=== PATIENT | male | born 2000 | race Caucasian/White ===

== ENCOUNTER 2018-05-08 19:10 | Emergency (ER) | payer MEDICARE, MEDICAID, SELFPAY ==
[2018-05-08 19:11] VITALS: BP 145/83; PULSE 114; RESP 20; TEMP 36.7; O2SAT 97; BMI 41.8
--- NOTE | 2018-05-08 19:50 | EKG12_ITS ---
Test Reason : CP Blood Pressure : / mmHG Vent. Rate : 110 BPM Atrial Rate : 110 BPM P-R Int : 144 ms QRS Dur : 092 ms QT Int : 336 ms P-R-T Axes : 038 -18 033 degrees QTc Int : 454 ms Sinus tachycardia Cannot rule out Anterior infarct , age undetermined Abnormal ECG Confirmed by JUAN GILBERT, GENE ([id number]), assistant film editor SHEILA TAM ([id number]) on 05/10/2018 5:11:10 PM Referred By: FRANCISCO Confirmed By:GENE MARTINEZ MD
--- NOTE | 2018-05-08 19:58 | RAD_ITS ---
STUDY: X-RAY CHEST REASON FOR EXAM: Male, 18 years old. Chest pain and shortness of breath TECHNIQUE: Single AP portable view of the chest. COMPARISON: None. FINDINGS: EKG leads overlie the chest The lungs are clear and expanded. There is no demonstrated pleural abnormality. Normal size heart. Normal mediastinum and frida. Normal visualized pulmonary arteries. Normal visualized aortic arch and descending thoracic aorta. Normal visualized thoracic spine. Normal visualized ribs, clavicles, and shoulders. There is no demonstrated abnormality of the visualized soft tissue structures of the upper abdomen. RAD/Chest 1 View (Portable) IMPRESSION: Normal x-ray examination of the chest. Electronically Signed: Jesus Polk MD at 20:08 EST , Service support ,
[2018-05-08 20:01] LABS: Absolute Lymphocyte Count 1.91 X10^3/ul (0.83-4.51); Absolute Neutrophil Count 4.9 X10^3/uL (2.0-7.7); Basophil# 0.02 X10^3/uL; Basophil% 0.3 % (0-1); Eosinophil# 0.29 X10^3/uL; Eosinophils% 3.7 % (0-5); Hematocrit 46.7 % (40-54); Lymphocyte # 1.91 X10^3/ul (4.0); Lymphocyte % 24.4 % (19-41); Mean Corp Hgb Conc 34.3 g/gl (32-36); Mean Corpuscular Hgb 28.1 pg (27.0-32.0); Mean Corpuscular Volume 82.1 fL (80-94); Mean Platelet Vol. 10.2 fl (6.2-12.0); Monocyte# 0.74 X10^3/uL; Monocyte% 9.5 % (0-10); Neutrophil # 4.86 X10^3/uL (2.7-7.7); POSITIVE COUNT NO; POSITIVE DIFFERENTIAL NO; POSITIVE MORPHOLOGY NO; Platelet Count 278 K/mm3 (150-450); RBC Distribution Width CV 13.2 % (11.6-14.6); RBC Distribution Width SD 39.9 fl (35.1-43.9); Red Blood Count 5.69 M/mm3 (4.6-6.2); White Blood Count 7.8 K/mm3 (4.4-11.0)
[2018-05-08] MEDS: Ketorolac 15 MG/ML Vial IV (20:08)
[2018-05-08 20:09] VITALS: BP 124/81; PULSE 97; RESP 15; O2SAT 99
[2018-05-08 20:14] LABS: Anion Gap 9 (5-15); BUN 13 mg/dL (7-18); BUN/Creat Ratio 14.7 RATIO (10-20); Calcium,Total 8.9 mg/dL (8.5-10.1); Chloride 105 mmol/L (98-107); Creatinine, Serum 0.88 mg/dL (0.70-1.30); EST Glomerular Filtration Rate 117 mL/min (>60); Est Glom Filt Rate - Afr Amer 142 mL/min (>60); Estimated Creatinine Clearance 129.55 ml/min; Glucose 97 mg/dL (74-106); Potassium 3.7 mmol/L (3.5-5.1); Sodium Level 139 mmol/L (136-145)
--- NOTE | 2018-05-08 20:27 | ED.RN ---
DR. FIELDS INFORMED OF PT D-DIMER.
--- NOTE | 2018-05-08 20:36 | CT_ITS ---
STUDY: CTA CHEST REASON FOR EXAM: Male, 18 years old. Substernal chest pain since this morning, hypertension, elevated d-dimer RADIATION DOSAGE (If Supplied By Facility): CTDIvol = ( 19.97 ) mGy, DLP = ( 700.79 ) mGycm TECHNIQUE: The examination was performed with the intravenous administration of 100ML ml of Isovue 370 contrast material. Post-processing of the angiographic images was performed, with multiplanar reformation and 3D reconstruction. Individualized dose optimization techniques were used for this CT. COMPARISON: None. FINDINGS: There is limited enhancement of the main pulmonary artery and right and left pulmonary arteries. There is limited enhancement of the bilateral peripheral pulmonary arteries. There is no demonstrated pulmonary embolism. Normal thoracic aorta and visualized great vessels. There is no demonstrated aortic dissection. Normal heart and pericardium. Normal mediastinum. Normal hilar regions. Normal visualized trachea and bronchi. The lungs are well expanded. Normal pulmonary parenchyma. Normal pleura. Normal chest wall structures. Normal osseous structures. There is diffuse fatty infiltration of the liver. CT/CTA Chest W/WO Contrast IMPRESSION: No demonstrated PE, however, contrast bolus within the pulmonary arteries is suboptimal and a subtle filling defect could be present and overlooked, particularly in the distal vessels. No acute pulmonary process Diffuse fatty infiltration of the liver Electronically Signed: Jesus Polk MD at 22:14 EST , Service support ,
--- NOTE | 2018-05-08 21:33 | ED.DCSUM_ITS ---
- ER Visit Summary Date of Service: 05/08/18 Chief Complaint: Chest pain History of Present Illness: The patient is a 18 M presenting with chest pain. He states that this started yesterday. He has chest pain and shortness of breath. He had pain all throughout the day. He states it has been constant. He did not take any medication at home prior to arrival. He does not recall any recent fall or heavy lifting. He denies fever or cough. Denies PE/DVT risk factors. Denies other complaints. Physical Examination: Vitals are stable. Patient is afebrile. Alert no acute distress. HEENT exam is unremarkable. Neck is supple. Lungs are clear and equal bilaterally. Chest tenderness to palpation with no crepitus Heart is regular rate and rhythm. Abdomen is soft nontender nondistended. Extremities are unremarkable. Skin is warm and dry. Remainder of exam is unremarkable. Emergency Department Course and Treatment: EKG is sinus tachycardia rate of 110. Chest x-ray shows no acute process. Patient was given Toradol IV. CBC, chemistries unremarkable. Troponin is negative. D-dimer is 0.50. Due to elevated d-dimer, CTA chest was obtained and shows no obvious PE however suboptimal. He is not tachycardic or hypoxic. On reevaluation, patient is feeling improved. He is advised to follow up with his primary care physician. Advised return to ED if worsening complaints. Disposition: Discharge home Impression: Chest wall pain This note was generated with Submittable dictation software. It may contain incorrect words, spelling, and punctuation that were not noted in review of the chart prior to signing ED Disposition - Plan for ED Patient: Chief Complaint: Chest Pain Instructions: ED Chest Pain Atypical Unkn Cause Prescriptions: Naproxen [Naprosyn] 500 mg PO BID PRN #20 tablet Referrals: Dalia Tripp MD [Primary Care Provider] -
[2018-05-08 22:23] VITALS: BP 115/70; PULSE 87; RESP 16; O2SAT 96
--- NOTE | 2018-05-08 22:24 | ED.DEP ---
ED Disposition - Plan for ED Patient: Chief Complaint: Chest Pain Instructions: ED Chest Pain Atypical Unkn Cause Prescriptions: Naproxen [Naprosyn] 500 mg PO BID PRN #20 tablet Referrals: Dalia Tripp MD [Primary Care Provider] -
--- NOTE | 2018-05-08 22:39 | ED.RN ---
PT AND PT FAMILY MEMBER GIVEN WRITTEN AND VERBAL DISCHARGE INSTRUCTIONS AND HOME GOING PRESCRIPTIONS. PT AND FAMILY MEMBER VERBALIZE UNDERSTANDING AND DENY ANY FURTHER QUESTIONS. IV D/C AND COVERED WITH 2X2 GAUZE DRESSING AND PAPER TAPE. PT DRESSES SELF AND AMBULATES OUT OF DEPT WITH FAMILY.
== END 2018-05-08 22:41 | disposition home or self-care (01) ==
LOC: ED 19:52
PROVIDERS: Emergency Provider Emergency Medicine; Family Provider Pediatrics; PCP Pediatrics
DX: R07.89 Other chest pain (principal)
CPT/HCPCS: 71045; 71275; 80048; 84484; 85025; 85379; 93005; 96374; 99284; Q9967; A4216

== ENCOUNTER → 2018-05-17 15:54 | Outpatient (CLI) | payer MEDICARE, MEDICAID, SELFPAY ==
[2018-05-08 19:11] VITALS: BMI 41.8
--- NOTE | 2018-05-17 16:02 | ECHOCS_ITS ---
Reason For Study: chest pain Procedure This was a 2D Doppler, Color Flow transthoracic echocardiogram. Contrast injection was performed. The study was technically difficult. Pt BP 185/135. 140/119 106/57 (dizziness) 112/52 137/84. Exam performed in department. Left Ventricle Normal LV size. Left ventricular systolic function is normal. The estimated ejection fraction is 65 %. No evidence for diastolic dysfunction. No regional wall motion abnormalities noted. Right Ventricle Normal RV size. Normal systolic function. Atria Normal left atrium. Normal right atrium. Mitral Valve Normal mitral valve. Tricuspid Valve Normal tricuspid valve. Aortic Valve The aortic valve is not well visualized. Pulmonic Valve Normal pulmonic valve. Great Vessels Normal aortic root. The pulmonary artery is normal size. Normal inferior vena cava. Pericardium/Pleural No pericardial effusion. Medication 22 gauge I.V. with prn adaptor inserted into right arm. Diluted definity 3ml given slow IV push to enhance endocardial definition. MMode/2D Measurements & Calculations LVIDd: 5.5 cm IVSd: 0.80 cm Ao root diam: 3.0 cm LVIDs: 3.2 cm LVPWd: 0.85 cm FS: 41.0 % LAV(MOD-bp): 38.6 ml EDV(MOD-sp4): 98.6 ml EDV(MOD-sp2): 72.3 ml LAV(MOD-bp) Indexed: 15.9 ml/m2 ESV(MOD-sp4): 28.0 ml EF(MOD-sp2): 78.6 % LAV(MOD-sp2): 32.0 ml EF(MOD-sp4): 71.6 % LAV(MOD-sp4): 41.9 ml SV(MOD-sp4): 70.6 ml SV(MOD-sp2): 56.9 ml LA A4 area: 16.2 cm2 LA dimension(2D): 4.6 cm RA A4 area: 11.9 cm2 Time Measurements MV dec time: 0.20 sec Doppler Measurements & Calculations MV E max keo: 86.1 cm/sec Lat Peak E' Keo: 12.7 cm/sec Med Peak E' Keo: 7.0 cm/sec MV A max keo: 52.5 cm/sec E/E' lat: 6.8 E/E' med: 12.4 MV E/A: 1.6 Ao V2 max: 133.4 cm/sec LV V1 max: 108.9 cm/sec Ao max P.1 mmHg LV V1 max P.7 mmHg Interpretation Summary Normal LV size. Left ventricular systolic function is normal. The estimated ejection fraction is 65 %. No evidence for diastolic dysfunction. Contrast injection was performed. Ordering Physician: Dalia Tripp Referring Physician: Dalia Tripp Performed By: Taylor Lee, DELORES, RVT
--- OUTSIDE RECORDS SUMMARY | 2018-07-19 22:06 | XMS RPT_ITS ---
:2000 Author Organization OH[facility] Care Team Providers Name Role Phone SONDRA TRIPPHRYN O Attending Unavailable REFERRED, SELF Referring Unavailable JOSEE, DALIA O Primary Care Unavailable SUSAN MARVIN Attending Unavailable MASOUD OLMOS (DANIEL) Attending Unavailable Josee, Dalia Primary Care Unavailable Emilee De La Fuente Attending Unavailable Josee, Dalia Attending Unavailable Josee, Dalia Referring Unavailable Josee, Dalia Primary Care Unavailable Pierce Chu Consulting Unavailable PROBLEMS PROBLEMS DATE TYPE CONDITION / CODE ATTENDING STATUS SOURCE 05/17/2018 Unknown R07.9 - Chest Josee, Active Lex pain, unspecified Dalia Community / R07.9(ICD-10) Hospital Repository 11/24/2017 Active Unknown / MASOUD OLMOS Active [facility] UNK(Unknown) (DANIEL) Main [place] Repository PROCEDURES PROCEDURES No Procedure Records FoundRESULTS RESULTS ECHO, COMPLETE W/ Observed: 05/18/2018 Status: F Source: COHOCTAH CONTRAST 7:58 AM [facility] REPOSITORY [facility] Cardiovascular Services [address] [place] [address] Echo Complete W/ Contrast 05/17/18 1611 MR#: [id number] Acct: [id number] Name: AVNI HOPKINS Rep #: [id number] : 2000 18 From: Pierce Chu MD Attending Dr: Dalia Tripp MD Status: REG CLI Ordering Dr: Dalia Tripp MD Date: 05/17/18 Location: [facility] Sex: M C Admitted: Reason For Study: chest pain Procedure This was a 2D Doppler, Color Flow transthoracic echocardiogram. Contrast injection was performed. The study was technically difficult. Pt BP 185/135. 140/119 106/57 (dizziness) 112/52 137/84. Exam performed in department. Left Ventricle Normal LV size. Left ventricular systolic function is normal. The estimated ejection fraction is 65 %. No evidence for diastolic dysfunction. No regional wall motion abnormalities noted. Right Ventricle Normal RV size. Normal systolic function. Atria Normal left atrium. Normal right atrium. Mitral Valve Normal mitral valve. Tricuspid Valve Normal tricuspid valve. Aortic Valve The aortic valve is not well visualized. Pulmonic Valve Normal pulmonic valve. Great Vessels Normal aortic root. The pulmonary artery is normal size. Normal inferior vena cava. Pericardium/Pleural No pericardial effusion. Medication 22 gauge I.V. with prn adaptor inserted into right arm. Diluted definity 3ml given slow IV push to enhance endocardial definition. MMode/2D Measurements AND Calculations LVIDd: 5.5 cm IVSd: 0.80 cm Ao root diam: 3.0 cm LVIDs: 3.2 cm LVPWd: 0.85 cm FS: 41.0 % LAV(MOD-bp): 38.6 ml EDV(MOD-sp4): 98.6 ml EDV(MOD-sp2): 72.3 ml LAV(MOD-bp) Indexed: 15.9 ml/m2 ESV(MOD-sp4): 28.0 ml EF(MOD-sp2): 78.6 % LAV(MOD-sp2): 32.0 ml EF(MOD-sp4): 71.6 % LAV(MOD-sp4): 41.9 ml SV(MOD-sp4): 70.6 ml SV(MOD-sp2): 56.9 ml LA A4 area: 16.2 cm2 LA dimension(2D): 4.6 cm RA A4 area: 11.9 cm2 Time Measurements MV dec time: 0.20 sec Doppler Measurements AND Calculations MV E max keo: 86.1 cm/sec Lat Peak E' Keo: 12.7 cm/sec Med Peak E' Keo: 7.0 cm/sec MV A max keo: 52.5 cm/sec E/E' lat: 6.8 E/E' med: 12.4 MV E/A: 1.6 Ao V2 max: 133.4 cm/sec LV V1 max: 108.9 cm/sec Ao max P.1 mmHg LV V1 max P.7 mmHg Interpretation Summary Normal LV size. Left ventricular systolic function is normal. The estimated ejection fraction is 65 %. No evidence for diastolic dysfunction. Contrast injection was performed. Ordering Physician: Dalia Tripp Referring Physician: Dalia Tripp Performed By: Taylor Lee, DAWNACS, RVT 05/18/18 0758 Date Pierce Chu MD CC: Dalia Tripp MD Date Dictated: 05/17/18 1611 Date Transcribed: 05/18/18 0758 Blueprint Assembler: Signed COMP METABOLIC PANEL Collected: 05/13/2018 Status: F Source: RAHEEL 4:54 PM [facility] REPOSITORY Order Comment: Is this specimen being sent to an external lab?->No TYPE CODE TESTS RESULT OUT OF REFERENCE UNITS RANGE LAB NA(LOINC) 133-145 mEq/L Sodium 137 LAB K(LOINC) 3.3-5.1 mEq/L High off Potassium 7.3 scale Result Comment: Moderately hemolyzed specimen. Potassium may be falsely elevated. LAB CL(LOINC) 96-108 mEq/L Chloride 104 LAB TCO2(LOINC) 22.0-29.0 mEq/L Carbon Dioxide 23.0 LAB BUN(LOINC) 4-19 mg/dL Urea Nitrogen 15 LAB GLU(LOINC) 70-99 mg/dL Glucose 77 Result Comment: Criteria for Diagnosis of Diabetes(Effective 09/29/10): Fasting specimen (no caloric intake for at least 8 hours). <100 mg/dl Normal 100-125 mg/dl Increased Risk for Diabetes >125 mg/dl Diagnostic for Diabetes Random Glucose (any time of day without regard to last meal). >=200 mg/dl plus Classic Symptoms of Diabetes LAB TBILI(LOINC) 0.0-1.0 mg/dl High Bili,Total 1.4 Result Comment: Premature : 1 Day 1.0-6.0 mg/dl 2 Day 6.0-8.0 mg/dl 3-5 Day 10.0-15.0 mg/dl LAB AST(LOINC) 0-37 U/L AST High 39 LAB ALT(LOINC) 0-41 U/L ALT High 45 LAB ALKP(LOINC) 40-129 U/L Alkaline Phosphatase 62 LAB CA(LOINC) 7.6-11.0 mg/dL Calcium 9.5 LAB TP(LOINC) 5.9-8.4 g/dL Protein,Total 7.3 LAB ALB(LOINC) 3.5-5.0 g/dL Albumin 4.2 LAB CREA(LOINC) 0.70-1.20 mg/dL Creatinine 0.73 Result Comment: Premature 0.3-1.0 mg/dL Performed By: #### CMP #### [facility] [place] [address] LIPID PANEL Collected: 05/13/2018 Status: F Source: CASSANDRA 4:54 PM [facility] REPOSITORY Order Comment: Is this specimen being sent to an external lab?->No TYPE CODE TESTS RESULT OUT OF REFERENCE UNITS RANGE LAB CHOL(LOINC 0-189 mg/dL ) Cholesterol 129 Result Comment: Acceptable <190 mg/dL Borderline 190-224 mg/dL Abnormal >224 mg/dL NOTE: Reference Range change effective 03/29/18 LAB TRIG(LOINC) 0-114 mg/dL Triglyceride Abnormal 159 Result Comment: Acceptable <115 mg/dl Borderline 115-149 mg/dl Abnormal >149 mg/dl NOTE: Reference Range change effective 03/29/18 Result invalid if not a fasting specimen. LAB HDL(LOINC) mg/dL Abnormal HDL Cholesterol 29 Result Comment: Acceptable >45 mg/dL Borderline 40-44 mg/dL Abnormal <40 mg/dL NOTE: Reference Range change effective 03/29/18 LAB LDL(LOINC) 0-119 mg/dl LDL Cholesterol 68 Result Comment: Acceptable <120 mg/dL Borderline 120-159 mg/dL Abnormal >159 mg/dl NOTE: Reference Range change effective 03/29/18 LAB NHDL(LOINC) 0-149 mg/dL Non-HDL Cholesterol 100 Result Comment: Acceptable <150 mg/dL Borderline 150-189 mg/dL Abnormal >189 mg/dl Performed By: #### LIPID #### [address] [address] HEMOGLOBIN A1C Collected: 05/13/2018 Status: F Source: CASSANDRA 4:53 PM [facility] REPOSITORY Order Comment: Is this specimen being sent to an external lab?->No TYPE CODE TESTS RESULT OUT OF REFERENCE UNITS RANGE LAB HA1C(LOINC 0.0-6.4 % ) Hemoglobin A1C 5.7 LAB HA1CI(LOIN NA C) HgbA1c Interpretation ----- Result Comment: In Diagnosed Diabetes: > 8 Action suggested 7-8 Good Control 6-7 Near Normal Glycemia < 6 Non-diabetic level Diabetes Screenin.7-6.4% Prediabetic >6.5% Diabetic - should be confirmed with repeat HgA1c or fasting blood sugar. Performed By: #### HBA1C #### [address] [address] PROGRESS NOTE Observed: 05/13/2018 Status: COMPLETED Source: TNJUANPABLO 3:40 PM [facility] REPOSITORY Patient ID: Avni Hopkins is a 18 y.o. male. His chief complaint(s) include: ED Follow Up (discuss CT Scan) Assessment 1. NAFLD (nonalcoholic fatty liver disease) 2. Obesity, unspecified classification, unspecified obesity type, unspecified whether serious comorbidity present Plan Avni was seen today for ed follow up. Diagnoses and all orders for this visit: NAFLD (nonalcoholic fatty liver disease) - Comprehensive metabolic panel (Clinic Collect) - Hemoglobin A1c (Clinic Collect) - Lipid panel (Clinic Collect) Obesity, unspecified classification, unspecified obesity type, unspecified whether serious comorbidity present I did tell them about possible serious liver problems that can develop. Weight loss would be important. Discussed healthy eating and being active. He and his mother might start walking together. He might start some exercises like push-ups. He was unwilling to commit to dietary changes, but needs to think about it. He might cut out pop, and make other changes. His mother is supportive of all these changes. I will get back to them about the results; he wants me to call his mother on these. Spent 30 min with them. Greater than 50% of the time was spent on case management. No follow-ups on file. Subjective HPI Comments: Seen in [facility] ER 3 d ago for chest pain. The pain is gone now. Normal breathing. Because he had an abnormal ECG, he will be having an echocardiogram at [facility] in 4 days (per Dr. Chu, sales engagement manager). Also, there was a CT of the chest done that showed diffuse fatty infiltration of the liver. He has been overweight for the last 4 yrs, and currently has BMI > 40. He is living in his own apt in the same house with his mother. He is on disability. He gets his own food. He does very little exercise. Liver - no labs for LFT in a few yrs. Not having any abd pain or jaundice. He is accompanied by his mother. ED Follow Up The patient was discharged 3 days ago. The patient was treated at [facility]. Diagnosis: chest pain. Primary Care Review of Systems Objective Vital Signs 05/13/18 1611 Temp: 36.5 C (97.7 F) TempSrc: Temporal Weight: (!) 123.6 kg There is no height or weight on file to calculate BMI. Physical Exam Constitutional: He appears well. He is active. No distress. obese HENT: Head: Atraumatic. Mouth/Throat: Mucous membranes are moist. Eyes: Conjunctivae are normal. Cardiovascular: Normal rate and regular rhythm. Heart murmur not heard. Pulmonary/Chest: Breath sounds normal. There is normal air entry. He has no wheezes. He has no rales. Abdominal: Soft. He exhibits no distension and no mass. There is no tenderness. Neurological: He is alert. 12 LEAD ELECTROCARDIOGRAM Observed: 05/10/2018 Status: F Source: COHOCTAH 5:11 PM [facility] REPOSITORY [facility] Cardiovascular Services [address] [place] [address] 12 Lead EKG 05/08/181917 MR#: [id number] Acct: [id number] Name: AVNI HOPKINS R Rep #: [id number] : 2000 18 From: Pierce Chu MD Attending Dr: Status: DEP ER Ordering Dr: Emilee De La Fuente MD Date: 05/08/18 Location: ED Sex: M C Admitted: Test Reason : CP Blood Pressure : / mmHG Vent. Rate : 110 BPM Atrial Rate : 110 BPM P-R Int : 144 ms QRS Dur : 092 ms QT Int : 336 ms P-R-T Axes : 038 -18 033 degrees QTc Int : 454 ms Sinus tachycardia Cannot rule out Anterior infarct , age undetermined Abnormal ECG Confirmed by PIERCE CHU MD ([id number]), market editor SHEILA TAM ([id number]) on 05/10/2018 5:11:10 PM Referred By: FRANCISCO Confirmed By:PIERCE CHU MD 05/10/18 1711 Date Pierce Chu MD CC: Emilee De La Fuente MD; Dalia Tripp MD Signed EMERGENCY DEPARTMENT Observed: 2018 Status: F Source: COHOCTAH SUMMARY 10:36 PM [facility] REPOSITORY [facility] Medical Records Department [address] [place] [address] Emergency Department Summary 05/08/18 2131 MR#: [id number] Acct: [id number] Name: AVNI HOPKINS R Rep #: [id number] : 2000 18 From: Emilee De La Fuente MD PCP: Dalia Tripp MD Status: REG ER - ER Visit Summary Date of Service: 05/08/18 Chief Complaint: Chest pain History of Present Illness: The patient is a 18 M presenting with chest pain. He states that this started yesterday. He has chest pain and shortness of breath. He had pain all throughout the day. He states it has been constant. He did not take any medication at home prior to arrival. He does not recall any recent fall or heavy lifting. He denies fever or cough. Denies PE/DVT risk factors. Denies other complaints. Physical Examination: Vitals are stable. Patient is afebrile. Alert no acute distress. HEENT exam is unremarkable. Neck is supple. Lungs are clear and equal bilaterally. Chest tenderness to palpation with no crepitus Heart is regular rate and rhythm. Abdomen is soft nontender nondistended. Extremities are unremarkable. Skin is warm and dry. Remainder of exam is unremarkable. Emergency Department Course and Treatment: EKG is sinus tachycardia rate of 110. Chest x-ray shows no acute process. Patient was given Toradol IV. CBC, chemistries unremarkable. Troponin is negative. D-dimer is 0.50. Due to elevated d- dimer, CTA chest was obtained and shows no obvious PE however suboptimal. He is not tachycardic or hypoxic. On reevaluation, patient is feeling improved. He is advised to follow up with his primary care physician. Advised return to ED if worsening complaints. Disposition: Discharge home Impression: Chest wall pain This note was generated with [employer] dictation software. It may contain incorrect words, spelling, and punctuation that were not noted in review of the chart prior to signing ED Disposition - Plan for ED Patient: Chief Complaint: Chest Pain Instructions: ED Chest Pain Atypical Unkn Cause Prescriptions: Naproxen [Naprosyn] 500 mg PO BID PRN #20 tablet Referrals: Dalia Tripp MD [Primary Care Provider] - What to do if you have Problems For any increased pain, shortness of breath, bleeding, nausea or vomiting, chest pain, or any unexpected problems, contact your Primary Care Provider. Call [facility] ([phone]) or report to the closest Emergency Room. Call 911 if necessary. 05/08/18 2236 <Electronically signed by Emilee De La Fuente MD> Date Emilee De L aFuente MD Cosigner Signature (If Indicated): Date CC: Dalia Tripp MD DISCHARGE INSTRUCTION Observed: 2018 Status: F Source: COHOCTAH 10:24 PM [facility] REPOSITORY [facility] Medical Records Department [address] [place] [address] Discharge Instruction 05/08/182223 MR#: [id number] Acct: [id number] Name: AVNI HOPKINS R Rep #: [id number] : 2000 18 From: Emilee De La Fuente MD PCP: Dalia Tripp MD Status: REG ER ED Disposition - Plan for ED Patient: Chief Complaint: Chest Pain Instructions: ED Chest Pain Atypical Unkn Cause Prescriptions: Naproxen [Naprosyn] 500 mg PO BID PRN #20 tablet Referrals: Dalia Tripp MD [Primary Care Provider] - What to do if you have Problems For any increased pain, shortness of breath, bleeding, nausea or vomiting, chest pain, or any unexpected problems, contact your Primary Care Provider. Call [facility] ([phone]) or report to the closest Emergency Room. Call 911 if necessary. 05/08/182223 <Electronically signed by Emilee De La Fuente MD> Date Emilee De La Fuente MD Cosigner Signature (If Indicated): Date CC: Dalia Tripp MD CTA CHEST W/WO Observed: 2018 Status: F Source: LEX CONTRAST 8:36 PM [facility] REPOSITORY [facility] Imaging Services [address] [place] [address] CTA Chest W/WO Contrast MR#: [id number] Acct: [id number] Name: AVNI HOPKINS R Rep #: [id number] : 2000 M 18 From: Misbah Polk MD PCP: Dalia Tripp MD Status: REG ER Study: CTA Chest W/WO Contrast Date of Exam: 05/08/18 Exam# [id number] Ordering Dr: Emilee De La Fuente MD STUDY: CTA CHEST REASON FOR EXAM: Male, 18 years old. Substernal chest pain since this morning, hypertension, elevated d-dimer RADIATION DOSAGE (If Supplied By Facility): CTDIvol = ( 19.97 ) mGy, DLP = ( 700.79 ) mGycm TECHNIQUE: The examination was performed with the intravenous administration of 100ML ml of Isovue 370 contrast material. Post-processing of the angiographic images was performed, with multiplanar reformation and 3D reconstruction. Individualized dose optimization techniques were used for this CT. COMPARISON: None. FINDINGS: There is limited enhancement of the main pulmonary artery and right and left pulmonary arteries. There is limited enhancement of the bilateral peripheral pulmonary arteries. There is no demonstrated pulmonary embolism. Normal thoracic aorta and visualized great vessels. There is no demonstrated aortic dissection. Normal heart and pericardium. Normal mediastinum. Normal hilar regions. Normal visualized trachea and bronchi. The lungs are well expanded. Normal pulmonary parenchyma. Normal pleura. Normal chest wall structures. Normal osseous structures. There is diffuse fatty infiltration of the liver. CT/CTA Chest W/WO Contrast IMPRESSION: No demonstrated PE, however, contrast bolus within the pulmonary arteries is suboptimal and a subtle filling defect could be present and overlooked, particularly in the distal vessels. No acute pulmonary process Diffuse fatty infiltration of the liver Electronically Signed: Jesus Polk MD at 22:14 EST , Service support , CC: Emilee De La Fuente MD; Dalia Tripp MD Blueprint Assembler: Signed CHEST 1 VIEW Observed: 2018 Status: F Source: COHOCTAH (PORTABLE) 7:51 PM [facility] REPOSITORY [facility] Imaging Services [facility] [place] [address] Chest 1 View (Portable) MR#: [id number] Acct: [id number] Name: AVNI HOPKINS Rep #: [id number] : 2000 M 18 From: Misbah Polk MD PCP: Dalia Tripp MD Status: REG ER Study: Chest 1 View (Portable) Date of Exam: 05/08/18 Exam# [id number] Ordering Dr: Emilee De La Fuente MD STUDY: X-RAY CHEST REASON FOR EXAM: Male, 18 years old. Chest pain and shortness of breath TECHNIQUE: Single AP portable view of the chest. COMPARISON: None. FINDINGS: EKG leads overlie the chest The lungs are clear and expanded. There is no demonstrated pleural abnormality. Normal size heart. Normal mediastinum and frida. Normal visualized pulmonary arteries. Normal visualized aortic arch and descending thoracic aorta. Normal visualized thoracic spine. Normal visualized ribs, clavicles, and shoulders. There is no demonstrated abnormality of the visualized soft tissue structures of the upper abdomen. RAD/Chest 1 View (Portable) IMPRESSION: Normal x-ray examination of the chest. Electronically Signed: Jesus Polk MD at 20:08 EST , Service support , CC: Emilee De La Fuente MD; Dalia Tripp MD Blueprint Assembler: Signed CBC W/DIFF, AUTOMATED Collected: 2018 Status: F Source: LEX 7:25 PM [facility] REPOSITORY TYPE CODE TESTS RESULT OUT OF RANGE REFERENCE UNITS LAB L100.1000 4.4-11.0 K/mm3 Normal WBC 7.8 LAB L100.1200 4.6-6.2 M/mm3 Normal RBC 5.69 LAB L100.1300 13.0-16.5 g/dl Normal HGB 16.0 LAB L100.1400 40-54 % Normal HCT 46.7 LAB L100.1500 80-94 fL Normal MCV 82.1 LAB L100.1600 27.0-32.0 pg Normal MCH 28.1 LAB L100.1700 32-36 g/gl Normal MCHC 34.3 LAB L100.1810 11.6-14.6 % Normal RDW CV 13.2 LAB L100.1820 35.1-43.9 fl Normal RDW SD 39.9 LAB L100.1900 150-450 K/mm3 Normal PLT 278 LAB L100.2000 6.2-12.0 fl Normal MPV 10.2 LAB L100.2100 47-70 % Normal NEUT% 62.0 LAB L100.2200 19-41 % Normal LY% 24.4 LAB L100.2300 0-10 % Normal MONO% 9.5 LAB L100.2400 0-5 % Normal EO% 3.7 LAB L100.2500 0-1 % Normal BASO% 0.3 LAB L100.2550 0.0-0.9 % Normal IM GRAN % 0.100 Result Comment: IG% - Immature Granulocytes (promyelocytes, myelocytes and metamyelocytes) > 1% indicates that a LEFT SHIFT is Present. LAB L100.2620 2.0-7.7 X10 3/uL Normal Absolute Neut 4.9 LAB L100.2720 0.83-4.51 X10 3/ul Normal Absolute Lymph 1.91 Performed By: #### L100.0100 #### [facility] [address] [place], [place], [address] BASIC METABOLIC Collected: 2018 Status: F Source: LEX PROFILE (BMP) 7:25 PM [facility] REPOSITORY TYPE CODE TESTS RESULT OUT OF RANGE REFERENCE UNITS LAB L501.0100 74-106 mg/dL Normal GLU 97 Result Comment: Please note revised GLUCOSE reference range effective 2017. LAB L501.1000 7-18 mg/dL Normal BUN 13 LAB L501.1100 0.70-1.30 mg/dL Normal CREAT,SERUM 0.88 Result Comment: The validity of the calculated GFR AND GFRAA in patients over 70 years has not been determined. Clinical correlation is essential. LAB L501.1110 >60 mL/min Normal EST GFR 117 Result Comment: Non- GFR Calc LAB L501.1115 >60 mL/min Normal EST GFR - AA 142 Result Comment: GFR Calc LAB L501.1255 ml/min Normal Estimated CRCL 129.55 LAB L501.1300 10-20 RATIO BUN/CRE Normal 14.7 LAB L501.2200 8.5-10 mg/dL .1 CA Normal 8.9 LAB L501.5300 136-14 mmol/L 5 NA Normal 139 LAB L501.5600 3.5-5. mmol/L 1 K Normal 3.7 LAB L501.5900 98-107 mmol/L CL Normal 105 LAB L501.6100 21.0-3 mmol/L 2.0 CO2 Normal 25.0 LAB L501.6200 5-15 GAP Normal 9 Performed By: #### L500.2500, L501.4010 #### [facility] [address] [facility] [place], [place], [address] TROPONIN-I Collected: 2018 Status: F Source: COHOCTAH 7:25 PM [facility] REPOSITORY TYPE CODE TESTS RESULT OUT OF RANGE REFERENCE UNITS LAB L501.4010 <0.045 ng/mL Normal < 0.015 TROPONIN-I Result Comment: TROPONIN-I EXPECTED VALUES <0.045 Negative 0.045 - 0.590 Consistent with Cardiac Damage > OR = 0.600 Critical Value Not every elevated troponin is indicative of UT. These values should be used with clinical judgement in examining the patient's clinical picture for diagnosis. To establish a diagnosis of UT versus myocardial injury, there must be a demonstrated rise and/or fall in the troponin values, in addition to ischemic symptoms, EKG changes, new regional wall motion abnormality, and/or angiographical evidence. PLEASE NOTE: REFERENCE RANGES EDITED 17 Performed By: #### L500.2500, L501.4010 #### [facility] [address] [place], [address] D-DIMER QUANTITATIVE Collected: 2018 Status: F Source: COHOCT[place] (DVT/PE) 7:25 PM [facility] REPOSITORY TYPE CODE TESTS RESULT OUT OF RANGE REFERENCE UNITS LAB L300.8000 0.27-0.49 FEU/ug/m High D-DIMER 0.50 QUANT Result Comment: D-Dimer ELEVATED (>0.49): Additional studies and clinical assessments are indicated to conclude diagnosis of: Deep Vein Thrombosis (DVT) or Pulmonary Embolism (PE) CRITICAL VALUE VERIFIED. CALLED TO Marguerite LOCKETT 05/08/182025 Su Dempsey. RESULTS READ BACK BY SAME. Performed By: #### L300.8000 #### [facility] [place], [address] JONAH Observed: 03/15/2018 Status: COMPLETED Source: KITE 12:[address] [facility] REPOSITORY Patient Outreach ([facility]) AVNI HOPKINS ([id number]) 2000 M Date Time Provider Department 03/15/18 SUSAN MARVIN [facility] During your visit today, we recorded the following information about you: Allergies As of Date: 03/15/2018 (No Known Allergies) Date Reviewed: 11/24/2017 Reviewed by: Masoud GoldmanGold CharmerKt Olmos - Fully Assessed Visit Diagnosis:Medication management [Z79.899] Order(s):HGB A1C [[id number]] Order #: [id number] FUTURE Prescriptions as of 03/15/2018 Sig: ADDERALL XR 15 MG CAPSULE,EXT* one each AM for ADD Patient not taking: No sig reported ABILIFY ORAL Take by mouth. CETIRIZINE 10 MG TABLET Take 1 tablet by mouth once d* FLUOXETINE 40 MG CAPSULE Take 40 mg by mouth once dao* FLONASE 50 MCG/ACTUATION NASA* 1 spray each nostril daily Patient not taking: No sig reported GUAIFENESIN ER 600 MG TABLET,* Take 2 tablets by mouth twice* Patient not taking: Reported on 10/03/2017 [id number] 0.5 MG CHEWABLE * Take one(1) tablet daily at b* RISPERIDONE 0.5 MG TABLET Take 0.5 mg by mouth twice da* Problem List As Of Date 03/15/2018 Noted Resolved Attention deficit hyperactivity disorder (ADHD)*INVALID FOR* More... 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 Encounter Status:Closed by NADEEM FRIEDMAN on 04/15/18 NIDIA Observed: 11/24/2017 Status: COMPLETED Source: KITE 7:[address] [facility] REPOSITORY Office Visit (WSTR) AVNI HOPKINS ([id number]) 2000 M Date Time Provider Department 11/24/17 7:00 PM MASOUD OLMOS (JESSIE) [facility] During your visit today, we recorded the following information about you: Temperature Pulse Respiration Weight 98.3 degrees 82/minute 18/minute 119.1 kg Masoud Olmos APRN.CNP 11/24/2017 7:58 PM Signed Subjective HPI HPI Avni Duke Sandeep is a 17 year old male who presents today for CC of right eye redness. This started today. Has tried nothing. Symptoms are worsened by nothing. Risk factors none. Eye itching at times. Concerned allergy from new cat. .Patient presents with: Eye Problem PAST MEDICAL HISTORY Diagnosis Date - Depression - PMH - PAST MEDICAL HISTORY OF Color Vision - Pass No past surgical history on file. ALLERGIES Patient has no known allergies. MEDICATIONS ARIPIPRAZOLE (ABILIFY ORAL) Take by mouth. FLUoxetine HCl (PROZAC) 40 mg capsule Take 40 mg by mouth once daily. risperiDONE (RISPERDAL) 0.5 mg tablet Take 0.5 mg by mouth twice daily. guaiFENesin (MUCINEX) 600 mg 12 hr tablet Take 2 tablets by mouth twice daily. fluticasone propionate(FLONASE 50 MCG/ACTUATION NASAL SPRAY) 1 spray each nostril daily Amphetamine-Dextroamphetamine (ADDERALL XR) 15 mg ORAL Cp24 one each AM for ADD [id number] 0.5 MG ORAL CHEW Take one(1) tablet daily at bedtime. FAMILY HISTORY Problem Relation Age of Onset - Stroke Maternal Grandmother - Diabetes Maternal Grandmother - Diabetes Other PATERNAL SIDE - Hearing Loss Other PATERNAL SIDE Social History Substance Use Topics - Smoking status: Passive Smoke Exposure - Never Smoker - Smokeless tobacco: Never Used Comment: Dad smokes. - Alcohol use No Review of Systems Constitutional: Negative for chills and fever. HENT: Negative for ear discharge, ear pain and sore throat. Eyes: Negative for blurred vision, double vision, photophobia, pain, discharge and redness. Skin: Negative for itching and rash. Neurological: Negative for headaches. Objective Pulse 82, temperature 36.8 ?C (98.3 ?F), temperature source Left Tympanic, resp. rate 18, weight 119.1 kg (262 lb 9.6 oz). Physical Exam Constitutional: He is oriented to person, place, and time and well-developed, well-nourished, and in no distress. Vital signs are normal. Non-toxic appearance. He does not have a sickly appearance. No distress. HENT: Right Ear: Hearing, tympanic membrane and external ear normal. Left Ear: Hearing, tympanic membrane, external ear and ear canal normal. Nose: No mucosal edema or sinus tenderness. Mouth/Throat: Uvula is midline, oropharynx is clear and moist and mucous membranes are normal. Eyes: Right eye exhibits no discharge. Left eye exhibits no discharge (mod amount clear drainage). Right conjunctiva is not injected. Left conjunctiva is not injected. Lymphadenopathy: Right cervical: No superficial cervical adenopathy present. Left cervical: No superficial cervical adenopathy present. No cervical lymphadenopathy bilaterally Neurological: He is oriented to person, place, and time. ASSESSMENT/PLAN: 1. Hordeolum externum of right lower eyelid - ICD9: 373.11, ICD10: H00.012 (primary diagnosis) -given education handout -discussed eye care/warm compress -follow up if worsening symptoms promptly - ERYTHROMYCIN 5 MG/GRAM (0.5 %) EYE OINTMENT 2. Contact allergy eyelid, right - ICD9: 373.32, ICD10: H01.113 -discussed good eye/hand hygiene when handling cat -f/u if s/s persist, worsen, change. - CETIRIZINE 10 MG TABLET Prescription instructions reviewed with patient as applicable. Patient advised if symptoms do not improve or if symptoms worsen sooner, to contact the office for further evaluation by their primary care physician. Potential red flag symptoms discussed with the patient. Reviewed appropriate action plan to take if red flag symptoms occur. Patient agreeable to treatment plan. Masoud Olmos APRN.JESSIE Olmos APRN.CNP 11/24/2017 7:23 PM Signed STY: You have a sty, an infection of one of the tiny glands located on the eyelid. A sty takes several days to develop. It usually forms a small abscess along the edge of the eyelid. The pus that forms in the infected gland must drain for the sty to heal. A sty is treated by applying warm moist compresses to the eye for 15 minutes three times daily until it drains and the swelling and redness are gone. Some sties require surgical drainage. Antibiotic eye drops may be needed if the infection spreads to other areas of the eye. Please see your doctor if your eye is not better after 3 days of treatment. Return immediately of see your doctor for any fever or loss of vision. Referring Provider: SELF [[id number]] Allergies As of Date: 11/24/2017 (No Known Allergies) Date Reviewed: 11/24/2017 Reviewed by: Masoud (Jessie) - Fully Assessed Reason for Visit: Eye Problem [43] Primary Visit Diagnosis:Hordeolum externum of right lower eyelid [H00.012] Other Visit Diagnosis:Contact allergy eyelid, right [H01.113] Order(s):cetirizine (ZYRTEC) 10 mg tabletTake 1 tablet by mouth once daily.Disp: 20 tabletRfl: 0 erythromycin ophthalmic ointmentUse 1 application in the right eye three times daily for 7 days.Disp: 1 TubeRfl: 0 Prescriptions as of 11/24/2017 Sig: ABILIFY ORAL Take by mouth. FLUOXETINE 40 MG CAPSULE Take 40 mg by mouth once dao* CETIRIZINE 10 MG TABLET Take 1 tablet by mouth once d* ERYTHROMYCIN 5 MG/GRAM (0.5 %* Use 1 application in the righ* RISPERIDONE 0.5 MG TABLET Take 0.5 mg by mouth twice da* GUAIFENESIN ER 600 MG TABLET,* Take 2 tablets by mouth twice* Patient not taking: Reported on 10/03/2017 FLONASE 50 MCG/ACTUATION NASA* 1 spray each nostril daily Patient not taking: No sig reported ADDERALL XR 15 MG CAPSULE,EXT* one each AM for ADD Patient not taking: No sig reported [id number] 0.5 MG CHEWABLE * Take one(1) tablet daily at b* Problem List As Of Date 11/24/2017 Noted Resolved Attention deficit hyperactivity disorder (ADHD)*INVALID FOR* More... 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 Other instructions from your clinician: STY: You have a sty, an infection of one of the tiny glands located on the eyelid. A sty takes several days to develop. It usually forms a small abscess along the edge of the eyelid. The pus that forms in the infected gland must drain for the sty to heal. A sty is treated by applying warm moist compresses to the eye for 15 minutes three times daily until it drains and the swelling and redness are gone. Some sties require surgical drainage. Antibiotic eye drops may be needed if the infection spreads to other areas of the eye. Please see your doctor if your eye is not better after 3 days of treatment. Return immediately of see your doctor for any fever or loss of vision. Prescriptions ordered this encounter Disp Refills Start End CETIRIZINE 10 MG TABLET 20 t* 0 11/24/2017 Route: ORAL Sig: Take 1 tablet by mouth once daily. ERYTHROMYCIN 5 MG/GRAM (0.5 %) EYE O* 1 Tu* 0 11/24/2017 12/01/2017 Route: RIGHT EYE Sig: Use 1 application in the right eye three times daily for 7 days. Encounter Status:Closed by MASOUD OLMOS CNP on 11/24/17 PROGRESS Observed: 11/24/2017 Status: COMPLETED Source: [place] 6:[address] [facility] REPOSITORY O ID: [id number] Author: Masoud Dewitt) Service: (none) Author Type: Nurse Practitioner Type: Progress Notes Filed: 11/24/2017 7:58 PM Note Text: Subjective HPI HPI Avni Hopkins is a 17 year old male who presents today for CC of right eye redness. This started today. Has tried nothing. Symptoms are worsened by nothing. Risk factors none. Eye itching at times. Concerned allergy from new cat. .Patient presents with: Eye Problem PAST MEDICAL HISTORY Diagnosis Date - Depression - PMH - PAST MEDICAL HISTORY OF Color Vision - Pass No past surgical history on file. ALLERGIES Patient has no known allergies. MEDICATIONS ARIPIPRAZOLE (ABILIFY ORAL) Take by mouth. FLUoxetine HCl (PROZAC) 40 mg capsule Take 40 mg by mouth once daily. risperiDONE (RISPERDAL) 0.5 mg tablet Take 0.5 mg by mouth twice daily. guaiFENesin (MUCINEX) 600 mg 12 hr tablet Take 2 tablets by mouth twice daily. fluticasone propionate(FLONASE 50 MCG/ACTUATION NASAL SPRAY) 1 spray each nostril daily Amphetamine-Dextroamphetamine (ADDERALL XR) 15 mg ORAL Cp24 one each AM for ADD [id number] 0.5 MG ORAL CHEW Take one(1) tablet daily at bedtime. FAMILY HISTORY Problem Relation Age of Onset - Stroke Maternal Grandmother - Diabetes Maternal Grandmother - Diabetes Other PATERNAL SIDE - Hearing Loss Other PATERNAL SIDE Social History Substance Use Topics - Smoking status: Passive Smoke Exposure - Never Smoker - Smokeless tobacco: Never Used Comment: Dad smokes. - Alcohol use No Review of Systems Constitutional: Negative for chills and fever. HENT: Negative for ear discharge, ear pain and sore throat. Eyes: Negative for blurred vision, double vision, photophobia, pain, discharge and redness. Skin: Negative for itching and rash. Neurological: Negative for headaches. Objective Pulse 82, temperature 36.8 ?C (98.3 ?F), temperature source Left Tympanic, resp. rate 18, weight 119.1 kg (262 lb 9.6 oz). Physical Exam Constitutional: He is oriented to person, place, and time and well-developed, well-nourished, and in no distress. Vital signs are normal. Non-toxic appearance. He does not have a sickly appearance. No distress. HENT: Right Ear: Hearing, tympanic membrane and external ear normal. Left Ear: Hearing, tympanic membrane, external ear and ear canal normal. Nose: No mucosal edema or sinus tenderness. Mouth/Throat: Uvula is midline, oropharynx is clear and moist and mucous membranes are normal. Eyes: Right eye exhibits no discharge. Left eye exhibits no discharge (mod amount clear drainage). Right conjunctiva is not injected. Left conjunctiva is not injected. Lymphadenopathy: Right cervical: No superficial cervical adenopathy present. Left cervical: No superficial cervical adenopathy present. No cervical lymphadenopathy bilaterally Neurological: He is oriented to person, place, and time. ASSESSMENT/PLAN: 1. Hordeolum externum of right lower eyelid - ICD9: 373.11, ICD10: H00.012 (primary diagnosis) -given education handout -discussed eye care/warm compress -follow up if worsening symptoms promptly - ERYTHROMYCIN 5 MG/GRAM (0.5 %) EYE OINTMENT 2. Contact allergy eyelid, right - ICD9: 373.32, ICD10: H01.113 -discussed good eye/hand hygiene when handling cat -f/u if s/s persist, worsen, change. - CETIRIZINE 10 MG TABLET Prescription instructions reviewed with patient as applicable. Patient advised if symptoms do not improve or if symptoms worsen sooner, to contact the office for further evaluation by their primary care physician. Potential red flag symptoms discussed with the patient. Reviewed appropriate action plan to take if red flag symptoms occur. Patient agreeable to treatment plan. Masoud Olmos APRN.JESSIE CNOV Observed: 10/03/2017 Status: COMPLETED Source: [place] 10:[address] [facility] REPOSITORY Office Visit (WSTR) AVNI HOPKINS ([id number]) 2000 M Date Time Provider Department 10/03/17 10:15 AM MARY BOOKER [facility] During your visit today, we recorded the following information about you: Temperature Pulse Blood pressure Weight 98.9 degrees 86/minute 122/84 119.3 kg Mary Booker APRN.CNP 10/03/2017 10:17 AM Addendum ASSESSMENT/PLAN: 1. Tooth abscess - ICD9: 522.5, ICD10: K04.7 - follow up with dentist - tylenol and motrin for alleviation of pain - cold compresses for alleviation of pain - practice good oral hygiene - warm salt water gargles - PENICILLIN V POTASSIUM 500 MG TABLET - eat first The patient is instructed to return or seek emergency treatment if symptoms become worse or with any acute change in condition. The patient verbalizes understanding and is in agreement with plan of care. Mary Booker APRN.JESSIE Booker APRN.CNP 10/03/2017 10:20 AM Signed 10/03/2017 Patient presents with: tooth pain: tooth pain top LT side X 2 days SUBJECTIVE: This is a 17 year old male that is here today for acute onset of left sided upper posterior tooth pain for 2 days. Patient rates pain at 9 on Numerical pain scale. Patient has been taking topical pain relief aide with minimal relief of symptoms. The severity is mild and the symptoms are not improving. The patient did not have a similar problem in the last 3 months. The patient did not take any antibiotics in the last 3 months. Patient has not been exposed to sick contacts. Patient denies recent travel. Pertinent medical history. PAST MEDICAL HISTORY Diagnosis Date - Depression - PMH - PAST MEDICAL HISTORY OF Color Vision - Pass ALLERGIES Patient has no known allergies. MEDICATIONS Current Outpatient Prescriptions: ARIPIPRAZOLE (ABILIFY ORAL) Take by mouth. FLUoxetine HCl (PROZAC) 40 mg capsule Take 40 mg by mouth once daily. penicillin V potassium (V-CILLIN, VEETIDS) 500 mg tablet Take 1 tablet by mouth three times daily for 10 days. risperiDONE (RISPERDAL) 0.5 mg tablet Take 0.5 mg by mouth twice daily. guaiFENesin (MUCINEX) 600 mg 12 hr tablet Take 2 tablets by mouth twice daily. (Patient not taking: Reported on 10/03/2017 ) fluticasone propionate(FLONASE 50 MCG/ACTUATION NASAL SPRAY) 1 spray each nostril daily (Patient not taking: No sig reported) Amphetamine-Dextroamphetamine (ADDERALL XR) 15 mg ORAL Cp24 one each AM for ADD (Patient not taking: No sig reported) [id number] 0.5 MG ORAL CHEW Take one(1) tablet daily at bedtime. No current facility-administered medications for this visit. SOCIAL HISTORY Social History Marital status: Single Spouse name: Years of education: Number of children: Occupational History Occupation Employer Comment unemployed Social History Main Topics Smoking status: Passive Smoke Exposure - Never Smoker Packs/day: 0.00 Years: 0.00 Smokeless tobacco: Never Used Comment: Dad smokes. Alcohol use: No Drug use: No Sexual activity: Not Currently REVIEW OF SYSTEMS Review of Systems Constitutional: Negative for chills, diaphoresis, fatigue and fever. HENT: Positive for dental problem. Respiratory: Negative for cough, chest tightness, shortness of breath and wheezing. Cardiovascular: Negative for chest pain and palpitations. OBJECTIVE: BP 122/84 Pulse 86 Temp 37.2 ?C (98.9 ?F) (Tympanic) Wt 119.3 kg (263 lb) BMI 40.58 kg/m? Physical Exam Constitutional: He is oriented to person, place, and time. Vital signs are normal. He appears well-developed and well-nourished. Non- toxic appearance. HENT: Head: Normocephalic and atraumatic. Mouth/Throat: Uvula is midline, oropharynx is clear and moist and mucous membranes are normal. Dental caries present. Left upper posterior crowned molar with erythema, swelling, and tenderness with palpation. Neck: Normal range of motion. Cardiovascular: Normal rate, regular rhythm and normal heart sounds. Pulmonary/Chest: Effort normal and breath sounds normal. Abdominal: Soft. Normal appearance and bowel sounds are normal. Lymphadenopathy: He has no axillary adenopathy. Neurological: He is alert and oriented to person, place, and time. Skin: Skin is warm, dry and intact. Nursing note and vitals reviewed. ASSESSMENT/PLAN: 1. Tooth abscess - ICD9: 522.5, ICD10: K04.7 - follow up with dentist - tylenol and motrin for alleviation of pain - cold compresses for alleviation of pain Practice good oral hygiene Warm salt water gargles - PENICILLIN V POTASSIUM 500 MG TABLET The patient is instructed to return or seek emergency treatment if symptoms become worse or with any acute change in condition. The patient verbalizes understanding and is in agreement with plan of care. Mary Booker, TEST ENGINEERING TECHNICIAN.ELDER COUNSELOR Referring Provider: SELF [[id number]] Allergies As of Date: 10/03/2017 (No Known Allergies) Date Reviewed: 10/03/2017 Reviewed by: Penny Jones Ma - Fully Assessed Reason for Visit: tooth pain [Other] Cmt: tooth pain top LT side X 2 days Primary Visit Diagnosis:Tooth abscess [K04.7] Order(s):penicillin V potassium (V-CILLIN, VEETIDS) 500 mg tabletTake 1 tablet by mouth three times daily for 10 days.Disp: 30 tabletRfl: 0 Prescriptions as of 10/03/2017 Sig: ABILIFY ORAL Take by mouth. FLUOXETINE 40 MG CAPSULE Take 40 mg by mouth once dao* PENICILLIN V POTASSIUM 500 MG* Take 1 tablet by mouth three * RISPERIDONE 0.5 MG TABLET Take 0.5 mg by mouth twice da* GUAIFENESIN ER 600 MG TABLET,* Take 2 tablets by mouth twice* Patient not taking: Reported on 10/03/2017 FLONASE 50 MCG/ACTUATION NASA* 1 spray each nostril daily Patient not taking: No sig reported ADDERALL XR 15 MG CAPSULE,EXT* one each AM for ADD Patient not taking: No sig reported [id number] 0.5 MG CHEWABLE * Take one(1) tablet daily at b* Problem List As Of Date 10/03/2017 Noted Resolved Attention deficit hyperactivity disorder (ADHD)*INVALID FOR* More... 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 Other instructions from your clinician: ASSESSMENT/PLAN: 1. Tooth abscess - ICD9: 522.5, ICD10: K04.7 - follow up with dentist - tylenol and motrin for alleviation of pain - cold compresses for alleviation of pain - practice good oral hygiene - warm salt water gargles - PENICILLIN V POTASSIUM 500 MG TABLET - eat first The patient is instructed to return or seek emergency treatment if symptoms become worse or with any acute change in condition. The patient verbalizes understanding and is in agreement with plan of care. Mary Booker APRN.ELDER COUNSELOR Prescriptions ordered this encounter Disp Refills Start End PENICILLIN V POTASSIUM 500 MG TABLET 30 t* 0 10/03/2017 10/13/2017 Route: ORAL Sig: Take 1 tablet by mouth three times daily for 10 days. Encounter Status:Closed by MARY BOOKER on 10/03/17 PROGRESS Observed: 10/03/2017 Status: COMPLETED Source: [place] 10:13 AM [facility] REPOSITORY O ID: [id number] Author: Mary Booker Service: (none) Author Type: Nurse Practitioner Type: Progress Notes Filed: 10/03/2017 10:20 AM Note Text: 10/03/2017 Patient presents with: tooth pain: tooth pain top LT side X 2 days SUBJECTIVE: This is a 17 year old male that is here today for acute onset of left sided upper posterior tooth pain for 2 days. Patient rates pain at 9 on Numerical pain scale. Patient has been taking topical pain relief aide with minimal relief of symptoms. The severity is mild and the symptoms are not improving. The patient did not have a similar problem in the last 3 months. The patient did not take any antibiotics in the last 3 months. Patient has not been exposed to sick contacts. Patient denies recent travel. Pertinent medical history. PAST MEDICAL HISTORY Diagnosis Date - Depression - PMH - PAST MEDICAL HISTORY OF Color Vision - Pass ALLERGIES Patient has no known allergies. MEDICATIONS Current Outpatient Prescriptions: ARIPIPRAZOLE (ABILIFY ORAL) Take by mouth. FLUoxetine HCl (PROZAC) 40 mg capsule Take 40 mg by mouth once daily. penicillin V potassium (V-CILLIN, VEETIDS) 500 mg tablet Take 1 tablet by mouth three times daily for 10 days. risperiDONE (RISPERDAL) 0.5 mg tablet Take 0.5 mg by mouth twice daily. guaiFENesin (MUCINEX) 600 mg 12 hr tablet Take 2 tablets by mouth twice daily. (Patient not taking: Reported on 10/03/2017 ) fluticasone propionate(FLONASE 50 MCG/ACTUATION NASAL SPRAY) 1 spray each nostril daily (Patient not taking: No sig reported) Amphetamine-Dextroamphetamine (ADDERALL XR) 15 mg ORAL Cp24 one each AM for ADD (Patient not taking: No sig reported) [id number] 0.5 MG ORAL CHEW Take one(1) tablet daily at bedtime. No current facility-administered medications for this visit. SOCIAL HISTORY Social History Marital status: Single Spouse name: Years of education: Number of children: Occupational History Occupation Employer Comment unemployed Social History Main Topics Smoking status: Passive Smoke Exposure - Never Smoker Packs/day: 0.00 Years: 0.00 Smokeless tobacco: Never Used Comment: Dad smokes. Alcohol use: No Drug use: No Sexual activity: Not Currently REVIEW OF SYSTEMS Review of Systems Constitutional: Negative for chills, diaphoresis, fatigue and fever. HENT: Positive for dental problem. Respiratory: Negative for cough, chest tightness, shortness of breath and wheezing. Cardiovascular: Negative for chest pain and palpitations. OBJECTIVE: BP 122/84 Pulse 86 Temp 37.2 ?C (98.9 ?F) (Tympanic) Wt 119.3 kg (263 lb) BMI 40.58 kg/m? Physical Exam Constitutional: He is oriented to person, place, and time. Vital signs are normal. He appears well-developed and well-nourished. Non-toxic appearance. HENT: Head: Normocephalic and atraumatic. Mouth/Throat: Uvula is midline, oropharynx is clear and moist and mucous membranes are normal. Dental caries present. Left upper posterior crowned molar with erythema, swelling, and tenderness with palpation. Neck: Normal range of motion. Cardiovascular: Normal rate, regular rhythm and normal heart sounds. Pulmonary/Chest: Effort normal and breath sounds normal. Abdominal: Soft. Normal appearance and bowel sounds are normal. Lymphadenopathy: He has no axillary adenopathy. Neurological: He is alert and oriented to person, place, and time. Skin: Skin is warm, dry and intact. Nursing note and vitals reviewed. ASSESSMENT/PLAN: 1. Tooth abscess - ICD9: 522.5, ICD10: K04.7 - follow up with dentist - tylenol and motrin for alleviation of pain - cold compresses for alleviation of pain Practice good oral hygiene Warm salt water gargles - PENICILLIN V POTASSIUM 500 MG TABLET The patient is instructed to return or seek emergency treatment if symptoms become worse or with any acute change in condition. The patient verbalizes understanding and is in agreement with plan of care. Mary Booker APRN.ELDER COUNSELOR PROGRESS Observed: 09/29/2017 Status: COMPLETED Source: [place] 3:42 PM [facility] [place] REPOSITORY [facility] ID: [id number] Author: Susan Marvin Service: (none) Author Type: Physician Type: Progress Notes Filed: 09/29/2017 5:51 PM Note Text: Reason for Visit Patient presents with: Establish Care: establish care Avni Hopkins is a 17 year old male who presents here today for Above Complaints.. Health Maintenance DTAP,TDAP,TD(6 - Tdap) HPV VACCINE(1 of 3 - Male 3 Dose Series) MENINGOCOCCAL CONJUGATE(1 of 1) HPI High-functioning autism spectrum disorder He has always struggled to make friends, he likes to stay to himself. He graduated in the [employer] arts. The challenge is that he needs a lot of direction. Attention deficit hyperactivity disorder (ADHD) He was diagnosed with ADHD In elementary school. Stopped it many years ago because he did not like the way it made him fe He sees some one at counseling centre for depression, he is on prozac in the morning and abilify In the evening., he is stable. There are days he feels low but more ok days Than bad. PAST MEDICAL HISTORY Diagnosis Date - Depression - PMH - PAST MEDICAL HISTORY OF Color Vision - Pass No past surgical history on file. FAMILY HISTORY Problem Relation Age of Onset - Stroke Maternal Grandmother - Diabetes Maternal Grandmother - Diabetes Other PATERNAL SIDE - Hearing Loss Other PATERNAL SIDE Social History Substance Use Topics - Smoking status: Passive Smoke Exposure - Never Smoker - Smokeless tobacco: Never Used Comment: Dad smokes. - Alcohol use No Past medical history, appointments, medications, allergies reviewed. Pertinent Lab/Diagnostic Studies are reviewed and discussed today Current Outpatient Prescriptions: - ARIPIPRAZOLE (ABILIFY ORAL) - FLUoxetine HCl (PROZAC) 40 mg capsule - risperiDONE (RISPERDAL) 0.5 mg tablet - guaiFENesin (MUCINEX) 600 mg 12 hr tablet - fluticasone propionate(FLONASE 50 MCG/ACTUATION NASAL SPRAY) - Amphetamine-Dextroamphetamine (ADDERALL XR) 15 mg ORAL Cp24 - [id number] 0.5 MG ORAL CHEW Review of Systems CONSTITUTIONAL: No fevers, chills night sweats, unintended weight loss CARDIOVASCULAR: No chest pain, dyspnea, palpitations, orthopnea, PND, ankle edema. PULM: No dyspnea, unexplained cough. GI: No dysphagia/odynophagia, problematic reflux, constipation, diarrhea, changes in stool habits, hematochezia, melena. : No new urinary complaints, including dysuria, gross hematuria or pyuria. NEURO: No new balance problems, peripheral weakness/paresthesias or numbness of concern. Physical Exam BP 122/68 (BP Site: Right Arm, BP Position: Sitting, BP Cuff Size: Large Adult) Pulse 84 Resp 14 Ht 171.5 cm (5' 7.5) Wt 121.6 kg (268 lb) SpO2 98% BMI 41.36 kg/m? General appearance: Well appearing, alert, in no acute distress, well nourished. Skin: Skin color, texture, turgor normal, no suspicious rashes or lesions Head: Normocephalic, no masses, lesions, tenderness or abnormalities Eyes: Anicteric sclera. Pupils are equally round and reactive to light. Extraocular movements are intact. Lungs: Lungs clear to auscultation. No wheezing, rhonchi, rales Heart: RRR without murmur, gallop, or rubs. Extremities: No deformities, edema, skin discoloration, clubbing or cyanosis. Good capillary refill. ASSESSMENT/PLAN: 1. Mixed hyperlipidemia - ICD9: 272.2, ICD10: E78.2 (primary diagnosis) - good control - Continue current medication. - LIPID PANEL BASIC - CBC + DIFF - COMP METABOLIC PANEL 2. Attention deficit hyperactivity disorder (ADHD), combined type - ICD9: 314.01, ICD10: F90.2 He has not needed medication for a while 3. High-functioning autism spectrum disorder - ICD9: 299.00, ICD10: F84.0 We discussed with his mother his likes and where he could try a vocations, he seems to like culinary skills and he likes talking to older people. So we discussed that working in an assisted living might be good for him. 4. Morbid obesity (HCC) - ICD9: 278.01, ICD10: E66.01 - TSH BLD SUSAN MARVIN MD CNOV Observed: 09/29/2017 Status: COMPLETED Source: [place] 3:[address] [facility] REPOSITORY Office Visit (INTMWS) SANDEEPAVNI Duke ([id number]) 2000 M Date Time Provider Department 09/29/17 3:00 PM SUSAN MARVIN INTMWS During your visit today, we recorded the following information about you: Pulse Respiration Blood pressure Weight 84/minute 14/minute 122/68 121.6 kg Height 1.715 m SUSAN MARVIN MD 09/29/2017 5:51 PM Signed Reason for Visit Patient presents with: Establish Care: establish care Avni Boyd Hopkins is a 17 year old male who presents here today for Above Complaints.. Health Maintenance DTAP,TDAP,TD(6 - Tdap) HPV VACCINE(1 of 3 - Male 3 Dose Series) MENINGOCOCCAL CONJUGATE(1 of 1) HPI High-functioning autism spectrum disorder He has always struggled to make friends, he likes to stay to himself. He graduated in the [employer] arts. The challenge is that he needs a lot of direction. Attention deficit hyperactivity disorder (ADHD) He was diagnosed with ADHD In elementary school. Stopped it many years ago because he did not like the way it made him fe He sees some one at counseling centre for depression, he is on prozac in the morning and abilify In the evening., he is stable. There are days he feels low but more ok days Than bad. PAST MEDICAL HISTORY Diagnosis Date - Depression - PMH - PAST MEDICAL HISTORY OF Color Vision - Pass No past surgical history on file. FAMILY HISTORY Problem Relation Age of Onset - Stroke Maternal Grandmother - Diabetes Maternal Grandmother - Diabetes Other PATERNAL SIDE - Hearing Loss Other PATERNAL SIDE Social History Substance Use Topics - Smoking status: Passive Smoke Exposure - Never Smoker - Smokeless tobacco: Never Used Comment: Dad smokes. - Alcohol use No Past medical history, appointments, medications, allergies reviewed. Pertinent Lab/Diagnostic Studies are reviewed and discussed today Current Outpatient Prescriptions: - ARIPIPRAZOLE (ABILIFY ORAL) - FLUoxetine HCl (PROZAC) 40 mg capsule - risperiDONE (RISPERDAL) 0.5 mg tablet - guaiFENesin (MUCINEX) 600 mg 12 hr tablet - fluticasone propionate(FLONASE 50 MCG/ACTUATION NASAL SPRAY) - Amphetamine-Dextroamphetamine (ADDERALL XR) 15 mg ORAL Cp24 - [id number] 0.5 MG ORAL CHEW Review of Systems CONSTITUTIONAL: No fevers, chills night sweats, unintended weight loss CARDIOVASCULAR: No chest pain, dyspnea, palpitations, orthopnea, PND, ankle edema. PULM: No dyspnea, unexplained cough. GI: No dysphagia/odynophagia, problematic reflux, constipation, diarrhea, changes in stool habits, hematochezia, melena. : No new urinary complaints, including dysuria, gross hematuria or pyuria. NEURO: No new balance problems, peripheral weakness/paresthesias or numbness of concern. Physical Exam BP 122/68 (BP Site: Right Arm, BP Position: Sitting, BP Cuff Size: Large Adult) Pulse 84 Resp 14 Ht 171.5 cm (5' 7.5) Wt 121.6 kg (268 lb) SpO2 98% BMI 41.36 kg/m? General appearance: Well appearing, alert, in no acute distress, well nourished. Skin: Skin color, texture, turgor normal, no suspicious rashes or lesions Head: Normocephalic, no masses, lesions, tenderness or abnormalities Eyes: Anicteric sclera. Pupils are equally round and reactive to light. Extraocular movements are intact. Lungs: Lungs clear to auscultation. No wheezing, rhonchi, rales Heart: RRR without murmur, gallop, or rubs. Extremities: No deformities, edema, skin discoloration, clubbing or cyanosis. Good capillary refill. ASSESSMENT/PLAN: 1. Mixed hyperlipidemia - ICD9: 272.2, ICD10: E78.2 (primary diagnosis) - good control - Continue current medication. - LIPID PANEL BASIC - CBC + DIFF - COMP METABOLIC PANEL 2. Attention deficit hyperactivity disorder (ADHD), combined type - ICD9: 314.01, ICD10: F90.2 He has not needed medication for a while 3. High-functioning autism spectrum disorder - ICD9: 299.00, ICD10: F84.0 We discussed with his mother his likes and where he could try a vocations, he seems to like culinary skills and he likes talking to older people. So we discussed that working in an assisted living might be good for him. 4. Morbid obesity (HCC) - ICD9: 278.01, ICD10: E66.01 - TSH BLD MD SUSAN POP MD 09/29/2017 3:52 PM Written He has always struggled to make friends, he likes to stay to himself. He graduated in the culinary arts. The challenge is that he needs a lot of direction. SUSAN MARVIN MD 09/29/2017 3:53 PM Written He was diagnosed with ADHD In elementary school. Stopped it many years ago because he did not like the way it made him fe Referring Provider: SELF [200] Allergies As of Date: 09/29/2017 (No Known Allergies) Date Reviewed: 09/29/2017 Reviewed by: Jackelyn Jovel LPN - Fully Assessed Reason for Visit: Establish Care [42] Cmt: establish care Primary Visit Diagnosis:Mixed hyperlipidemia [E78.2] Other Visit Diagnoses:Attention deficit hyperactivity disorder (ADHD), combined type [F90.2] High-functioning autism spectrum disorder [F84.0] Morbid obesity (HCC) [E66.01] Unspecified blood type, rh negative [Z67.91] Order(s):LIPID PANEL BASIC [SQLIPB] Order #: [id number] FUTURE CBC + DIFF [SQCBCDIF] Order #: [id number] FUTURE COMP METABOLIC PANEL [SQCMP] Order #: [id number] FUTURE TSH BLD [SQTSH] Order #: [id number] FUTURE CONFIRM BLOOD TYPE [SQCONABO] Order #: [id number] FUTURE Prescriptions as of 09/29/2017 Sig: ABILIFY ORAL Take by mouth. FLUOXETINE 40 MG CAPSULE Take 40 mg by mouth once dao* RISPERIDONE 0.5 MG TABLET Take 0.5 mg by mouth twice da* GUAIFENESIN ER 600 MG TABLET,* Take 2 tablets by mouth twice* FLONASE 50 MCG/ACTUATION [employer]* 1 spray each nostril daily ADDERALL XR 15 MG CAPSULE,EXT* one each AM for ADD [id number] 0.5 MG CHEWABLE * Take one(1) tablet daily at b* Problem List As Of Date 09/29/2017 Noted Resolved Attention deficit hyperactivity disorder (ADHD)*INVALID FOR* More... 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 Encounter Status:Closed by SUSAN MARVIN MD on 09/29/17 PROGRESS Observed: 06/14/2017 Status: COMPLETED Source: [place] 4:47 PM [facility] RE[facility]IT[facility] HNO ID: [id number] Author: Philomena Dewitt) Neri Service: (none) Author Type: Nurse Practitioner Type: Progress Notes Filed: 06/14/2017 8:02 PM Note Text: Subjective HPI Patient is a 17 year old male here today for a 5-7 day history of fever, nasal congestion, headache, Nausea and vomiting, states also has had a cough. States the fever has been gone for a day or two. States had myalgias with onset. States sudden onset. Review of Systems Constitutional: Positive for fever and malaise/fatigue. Negative for chills. HENT: Negative for congestion, ear pain and sore throat. Respiratory: Positive for cough. Negative for sputum production, shortness of breath and wheezing. Cardiovascular: Negative. Gastrointestinal: Positive for nausea and vomiting. Negative for diarrhea. Musculoskeletal: Negative for myalgias. Neurological: Negative for headaches. All other systems reviewed and are negative. PAST MEDICAL HISTORY Diagnosis Date - PMH - PAST MEDICAL HISTORY OF Color Vision - Pass No past surgical history on file. ALLERGIES Review of patient's allergies indicates no known allergies. MEDICATIONS ARIPIPRAZOLE (ABILIFY ORAL) Take by mouth. FLUoxetine HCl (PROZAC) 40 mg capsule Take 40 mg by mouth once daily. risperiDONE (RISPERDAL) 0.5 mg tablet Take 0.5 mg by mouth twice daily. guaiFENesin (MUCINEX) 600 mg 12 hr tablet Take 2 tablets by mouth twice daily. fluticasone propionate(FLONASE 50 MCG/ACTUATION NASAL SPRAY) 1 spray each nostril daily Amphetamine-Dextroamphetamine (ADDERALL XR) 15 mg ORAL Cp24 one each AM for ADD [id number]-GA-AAVT 0.5 MG ORAL CHEW Take one(1) tablet daily at bedtime. FAMILY HISTORY Problem Relation Age of Onset - Stroke Maternal Grandmother - Diabetes Maternal Grandmother - Diabetes Other PATERNAL SIDE - Hearing Loss Other PATERNAL SIDE Social History Substance Use Topics - Smoking status: Passive Smoke Exposure - Never Smoker - Smokeless tobacco: Never Used Comment: Dad smokes. - Alcohol use No Pulse 80 Temp 37.1 ?C (98.7 ?F) (Tympanic) Resp 20 Wt 121.2 kg (267 lb 3.2 oz) Objective Physical Exam Constitutional: He is oriented to person, place, and time and well-developed, well-nourished, and in no distress. Vital signs are normal. Mildly ill. HENT: Head: Normocephalic and atraumatic. Right Ear: Tympanic membrane, external ear and ear canal normal. Left Ear: Tympanic membrane, external ear and ear canal normal. Nose: Mucosal edema and rhinorrhea present. Right sinus exhibits no maxillary sinus tenderness and no frontal sinus tenderness. Left sinus exhibits no maxillary sinus tenderness and no frontal sinus tenderness. Mouth/Throat: Uvula is midline, oropharynx is clear and moist and mucous membranes are normal. No oropharyngeal exudate, posterior oropharyngeal edema or posterior oropharyngeal erythema. Neck: Neck supple. Cardiovascular: Normal rate, regular rhythm and normal heart sounds. Pulmonary/Chest: Effort normal and breath sounds normal. He has no wheezes. He has no rales. Harsh cough with exam; Abdominal: Soft. Bowel sounds are normal. He exhibits no distension. There is no tenderness. There is no rebound and no guarding. Lymphadenopathy: Head (right side): No submental, no submandibular and no tonsillar adenopathy present. Head (left side): No submental, no submandibular and no tonsillar adenopathy present. He has no cervical adenopathy. Submandibular fullness. Neurological: He is alert and oriented to person, place, and time. Skin: Skin is warm and dry. Nursing note and vitals reviewed. ASSESSMENT/PLAN: 1. Viral illness - ICD9: 079.99, ICD10: B34.9 - Suspect recovering from flu like illness - BRAT diet and expand as tolerates - Discussed viral etiology and rationale for treatment. - Symptomatic treatment with prn analgesia - Supportive care with fluids and rest - The patient may also use OTC cough and cold meds as needed and warm salt water gargles, throat lozenges and/or OTC throat spray as needed. - Follow up in 3-5 days if symptoms persist or sooner if worsening of symptoms Prescription instructions reviewed with patient as applicable. Patient advised if symptoms do not improve or if symptoms worsen sooner, to contact their primary care physician. Potential red flag symptoms discussed with the patient. Reviewed appropriate action plan to take if red flag symptoms occur. Patient agreeable to treatment plan. Philomena He CNP ALLERGIES ALLERGIES DATE TYPE / CODE NAME / CODE REACTION SEVERITY SOURCE 2018 Drug No Known Unknown [place] Allergy/623409329(S Allergies/F0019 [facility] 4[facility](RXNORM[facility] Hospital Repository Miscellaneous NO KNOWN [place] Allergy/317407506(S ALLERGIES [facility] Hospital Repository Drug NO KNOWN [place] Class/[id number](SNO ALLERGIES [facility]) [place] Repository ENCOUNTERS ENCOUNTERS ADMIT/DISCHARGE ACCOUNT ADMITTING ENCOUNTER LOCATION SOURCE NUMBER CLASS 05/17/2018 [id number] Ambulatory [facility] ing:[facility] Repository 05/13/2018/05/13/19 [id number] Ambulatory Building:[facility] [place] [facility] Repository 05/08/2018/05/08/19 [id number] Emergency [address] ing:ED Repository 11/24/2017/11/26/19 [id number] Ambulatory [address] Repository 10/03/2017/10/06/19 [id number] Ambulatory [address] Repository 09/29/2017/10/01/19 [id number] Ambulatory [address] Repository 06/14/2017/06/16/19 [id number] Ambulatory [address] Repository PAYERS PAYERS ENCOUNTER GUARANTOR PAYER SUBSCRIBER SOURCE 05/17/2018 AVNI R Primary AVNI R [place] [id number] Insurance:MEDICARE LAYFIELDDOB: [facility] [id number] Number: Repository [address]Ksq: 330 [id number] [phone] () Date:2018-05-12 05/17/2018 Secondary AVNI R [place] [facility] LAYFIELDDOB: [facility] Number: [id number] [id number] Repository Date:2018-05-12 05/17/2018 Tertiary NOT GIVENUNK [place] Insurance:SELF PAY [facility] Number: Effective Repository Date:2018-05-12 05/13/2018 AVNI RAY Primary AVNI RAY [facility] LAYFIELDDOB: [place] LAYFIELDDOB[facility] [id number] [facility] Number: [place] [id number], [place] [address]Gzd: 330) Date: [phone] () 2018 AVNI R Primary AVNI R Lex [id number] Insurance:CARESOURCEP LAYFIELDDOB: [facility] [place]: [id number] [id number] Repository [address]Fpt: ([phone] Date:2018 O [phone] (HP) [address]ATTN: [place] [address]XM: 2018 Secondary NOT GIVENUNK [place] Insurance:SELF PAY [facility] Number: Effective Repository Date:2018
== END ==
PROVIDERS: Family Provider Pediatrics; PCP Pediatrics; Referring Provider Pediatrics; Visit Provider Pediatrics
DX: R07.9 Chest pain, unspecified (principal)
CPT/HCPCS: 93306; Q9957; A4216; C8929

== ENCOUNTER 2020-06-23 20:40 | Emergency (ER) | payer MEDICARE, MEDICAID, SELFPAY ==
[2020-06-23 20:41] VITALS: BP 157/94; PULSE 89; RESP 16; TEMP 36.3; O2SAT 96; BMI 42.8
--- NOTE | 2020-06-23 20:59 | ED.VISSUMM ---
- ER Visit Summary Date of Service: 06/23/20 Chief Complaint: Blurry vision History of Present Illness: The patient is a 20 M presenting with blurry vision. Patient states he was having his normal nighttime routine watching movies and cooking dinner. He states he began having blurry vision. This made him very anxious. He denies headache. He denies double vision. He states he has not eaten anything since this morning. He had mild dizziness with no syncope. Denies fever or recent illness. Denies trauma or foreign body in eye. Denies other complaints. Physical Examination: Vitals are stable. Patient is afebrile. Alert no acute distress. HEENT exam is unremarkable. PERRL, EOMI Neck is supple. Lungs are clear and equal bilaterally. Heart is regular rate and rhythm. Abdomen is soft nontender nondistended. Extremities are unremarkable. Skin is warm and dry. No focal neurologic deficit. Remainder of exam is unremarkable. Emergency Department Course and Treatment: Patient states his vision feels back to baseline. He was given IV fluids. Chemistry panel is unremarkable. Visual acuity shows OD 20/25, OS 20/20, OU 20/25. Patient feels his vision is back at baseline. He is advised signs and symptoms for which to return to the ED. Advised to follow-up with primary care physician. Disposition: Discharge home Impression: Blurry vision, resolved This note was generated with [employer] dictation software. It may contain incorrect words, spelling, and punctuation that were not noted in review of the chart prior to signing ED Disposition - Plan for ED Patient: Instructions: ED [place] Referrals: Dalia Tripp MD [Primary Care Provider] -
[2020-06-23] MEDS: 0.9% Normal Saline 1,000 ML 999 ML IV (21:16)
[2020-06-23 21:52] LABS: Anion Gap 7 (5-15); BUN 23 mg/dL (7-18); BUN/Creat Ratio 19.3 RATIO (10-20); Chloride 105 mmol/L (98-107); Creatinine, Serum 1.19 mg/dL (0.70-1.30); EST Glomerular Filtration Rate 81 mL/min (>60); Est Glom Filt Rate - Afr Amer 98 mL/min (>60); Glucose 85 mg/dL (74-106); Sodium Level 139 mmol/L (136-145)
--- NOTE | 2020-06-23 22:06 | ED.DEP ---
ED Disposition - Plan for ED Patient: Instructions: ED Bl[place] Referrals: Dalia Tripp MD [Primary Care Provider] -
== END 2020-06-23 22:20 | disposition home or self-care (01) ==
LOC: ED 21:45
PROVIDERS: Emergency Provider Emergency Medicine; PCP Pediatrics
DX: H53.8 Other visual disturbances (principal); R42 Dizziness and giddiness
CPT/HCPCS: 80048; 99284; J7030

== ENCOUNTER 2022-01-04 08:31 | Emergency (ER) | payer MEDICARE, MEDICAID, SELFPAY ==
[2022-01-04 08:33] VITALS: BP 183/120; PULSE 118; RESP 18; TEMP 36.6; O2SAT 99; BMI 50.8
--- NOTE | 2022-01-04 09:23 | ED.VIS.GI ---
HPI HPI - GI History of Present Illness Chief Complaint: Abd Pain Informant: patient Abdominal Pain/Flank Pain Onset: Yesterday Context: Gradual Onset Timing: Continuous and Waxes and wanes Quality: Cramping Location: Diffuse Worsened by: - (Laying down) Relieved by: Nothing Nausea/Vomiting/Emesis GI Symptom: Positive for Nausea and Vomiting Quality: Positive for Nonbilious; Negative for Blood streaks, Coffee ground or Hematemesis Diarrhea/Melena/Hematochezia GI Symptom: Positive for Diarrhea; Negative for Melena or Hematochezia Associated Symptoms Associated Symptoms: Negative for Dysuria, Frequency or Hematuria Narrative Narrative: Patient presents with abdominal pain that began yesterday. Patient states it came on gradually. Patient describes his pain as cramping and a wave of pain. Patient states it is diffuse across his abdomen. Patient states it waxes and wanes but is constant. Patient states it is worse whenever he lays down. Patient states nothing seems to help with the pain. Patient admits to some nausea and vomiting. Patient denies any hematemesis or coffee-ground emesis. Patient admits to diarrhea but denies any melena or hematochezia. Patient denies any urinary complaints. Patient denies any radiation of the pain into his back. [facility] Medical History (Updated 01/04/22 @ 12:[address] Deo Lindquist DO) Depression Medical History no medical history Home Medications fluoxetine 10 mg capsule 20 mg PO DAILY 12/31/13 [History Last Taken 01/01/16] naproxen 500 mg tablet 500 mg PO BID PRN #20 tabs 05/08/18 [Rx Last Taken Unknown] ciprofloxacin HCl 500 mg tablet 500 mg PO BID #20 TABLETS 01/04/22 [Rx Last Taken Unknown] metronidazole 500 mg tablet 500 mg PO Q6H #40 tabs 01/04/22 [Rx Last Taken Unknown] ondansetron 4 mg disintegrating tablet 4 mg PO Q8H PRN PRN Nausea #10 tabs 01/04/22 [Rx Last Taken Unknown] Allergy/AdvReac Type Severity Reaction Status Date / Time No Known Allergies Allergy Verified 01/04/22 08:34 Family History no significant family his Surgical History no surgical history no surgical history Social History Smoking Status: Never smoker ROS ROS ED Constitutional Constitutional ED: Denies chills or fever(s) Eyes Eyes: Denies blurry vision or change in vision ENT ENT ED: Denies rhinorrhea or sore throat Cardiovascular Cardiovascular: Denies chest pain or palpitations Respiratory/Chest Respiratory/Chest: Reports dyspnea; Denies cough Gastrointestinal Gastrointestinal: Reports abdominal pain, diarrhea, nausea and vomiting Genitourinary Genitourinary ED: Denies dysuria or hematuria Musculoskeletal Musculoskeletal: Denies back pain or neck pain Integumentary Denies abscess or rash Neurologic Neurologic: Denies headache(s) or weakness Allergic/Immunologic Allergic/Immunologic ED: Denies mouth swelling or urticaria EXAM Physical Exam Const Vital Signs: 01/04/22 08:33 01/04/22 12:07 Temperature 97.9 F Temperature Source Temporal Pulse Rate 118 H Respiratory Rate 18 Blood Pressure 183/120 H 141/86 H Blood Pressure Mean 141 104 Pulse Ox 99 95 Oxygen Delivery Method Room Air Room Air Positive well nourished, well developed and obese General Appearance ED: well developed and NAD Nutritional Appearance: obese HEENT Reports moist mucous membranes Neck supple and no JVD Resp normal respiratory effort and clear to auscultation bilaterally Cardio regular rate and regular rhythm GI Auscultation: normoactive bowel sounds Palpation: soft and tender epigastric, LLQ, RLQ, LUQ, RUQ, periumbilical and suprapubic; Negative for guarding or rebound tenderness present Extremity full ROM Neuro CN's II-XII intact bilaterally, moves all extremities and no sensory deficits noted Sensorium / Orientation: alert, oriented to person, oriented to place and oriented to time Motor Exam: strength 5/5 throughout Psych mental status grossly normal MDM MDM MDM Narrative Medical decision making narrative: Patient was given IV fluids, morphine, and Zofran. CBC shows a mild leukocytosis of 12.9. Comprehensive metabolic profile was within normal limits with the exception of a slightly elevated glucose of 192. Lipase was normal. Urinalysis did not show any evidence of urinary tract infection or hematuria. CT scan of the abdomen pelvis was obtained. There is evidence of ileitis and colitis. There is fatty infiltration of the liver. There is no other acute process noted. This was interpreted by the radiologist and reviewed by myself. Patient was advised of his findings. Patient was given a dose of Cipro and Flagyl here. Patient was given prescriptions for Cipro and Flagyl. Patient was instructed to start with a bland diet and advance as tolerated. Patient was instructed to follow-up with his primary care physician in 3 to 5 days. Patient understood and was agreeable with the plan. All questions were answered. Lab Data Attestation: I reviewed the patient's lab results. Labs: Laboratory Results - last 24 hr 01/04/22 01/04/22 01/04/22 09:35 09:35 09:50 WBC 12.9 H RBC 5.35 Hgb 14.9 Hct 44.9 MCV 83.9 MCH 27.9 MCHC 33.2 RDW Std Deviation 40.2 RDW Coeff of Kyler 13.1 Plt Count 267 MPV 10.2 Immature Gran % (Auto) 0.500 Neut % (Auto) 74.1 H Lymph % (Auto) 13.2 L Placer % (Auto) 8.8 Eos % (Auto) 3.0 Baso % (Auto) 0.4 Absolute Neuts (auto) 9.5 H Absolute Lymphs (auto) 1.69 Nucleated RBC % 0 Sodium 139 Potassium 3.8 Chloride 106 Carbon Dioxide 26.0 Anion Gap 7 BUN 16 Creatinine 0.96 Estim Creat Clear Calc 111.89 Est GFR (MDRD) Af Amer 124 Est GFR (MDRD) Non-Af 102 BUN/Creatinine Ratio 16.6 Glucose 192 H Calcium 9.0 Total Bilirubin 0.40 AST 21 ALT 62 H Alkaline Phosphatase 58 Total Protein 7.0 Albumin 3.6 Globulin 3.4 Albumin/Globulin Ratio 1.1 Lipase 110 Urine Color Yellow Urine Clarity Clear Urine pH 6.0 Ur Specific [place] 1.025 Urine Protein 30 H Urine Glucose (UA) 100 H Urine Ketones Negative Urine Occult Blood Negative Urine Nitrite Negative Urine Bilirubin Negative Urine Urobilinogen Normal Ur Leukocyte Esterase Negative Urine RBC 0 SEEN Urine WBC 0 SEEN Ur Squamous Epith Cells 0 SEEN Urine Bacteria 0 SEEN Urine Mucus 0 SEEN Radiography Diagnostic Testing: Clinical Impression(s) from Imaging Studies Abdomen/Pelvis CT 01/04/22 09:26 IMPRESSION: Findings consistent with ileitis of the distal ileum, possibly acute on chronic. Circumferential wall thickening of the colon associated with intramural fat suggestive of a history of colitis however can cannot exclude acute on chronic colitis. Fatty infiltration of the liver. Electronically Signed: Jennifer Ramirez MD at 11:39 EDT , Discharge Plan Triage Chief Complaint: Abd Pain ED Provider: Deo Lindquist Dx/Rx/DC Orders Clinical Impression: Colitis, Ileitis, Nausea and vomiting Instructions: ED Understanding Colitis, ED Vomiting (Adult) Prescriptions: New metronidazole [metronidazole] 500 mg tablet 500 mg PO Q6H Qty: 40 0RF ciprofloxacin HCl [ciprofloxacin HCl] 500 mg tablet 500 mg PO BID Qty: 20 0RF ondansetron [ondansetron] 4 mg tablet,disintegrating 4 mg PO Q8H PRN PRN (Reason: Nausea) Qty: 10 0RF No Action fluoxetine 10 MG capsule 20 mg PO DAILY naproxen 500 MG tablet 500 mg PO BID PRN Qty: 20 0RF Primary Care Provider: Susan Brewer Referrals: Susan Brewer MD [Primary Care Provider] - 3-5 Days Disposition Disposition: Home, Self Care
--- NOTE | 2022-01-04 09:26 | CT_ITS ---
STUDY: CT ABDOMEN AND PELVIS WITH CONTRAST REASON FOR EXAM: Male, 21 years old. Abdominal pain -- IV PO Contrast RADIATION DOSAGE (If Supplied By Facility): CTDIvol = ( 20.30 ) mGy, DLP = ( 1442.07 ) mGycm TECHNIQUE: Transaxial images were obtained from the dome of the diaphragm to the symphysis pubis without oral contrast. Oral and amp; IV Gastrografin and amp; 100mL Isovue-300 was administered. Sagittal and coronal images were reconstructed. Individualized dose optimization techniques were used for this CT. COMPARISON: None. FINDINGS: The visualized lung bases are unremarkable. The visualized portions of the heart are within normal limits. There is decreased attenuation of the liver consistent with steatosis. The gallbladder is distended. Normal spleen. Normal pancreas. Normal bilateral adrenal glands. Normal right kidney. Normal left kidney. Normal visualized stomach. There is intramural fat within the distal ileum associated with wall thickening and prominent adjacent vasogenic. There is intramural fat throughout the colon. There is scattered diverticula arising from the colon. The appendix is visualized and appears normal. Normal abdominal aorta. Normal inferior vena cava. Normal retroperitoneum. Normal urinary bladder. Normal abdominal wall. Normal osseous structures. CT/Abdomen/Pelvis WITH Contrast IMPRESSION: Findings consistent with ileitis of the distal ileum, possibly acute on chronic. Circumferential wall thickening of the colon associated with intramural fat suggestive of a history of colitis however can cannot exclude acute on chronic colitis. Fatty infiltration of the liver. Electronically Signed: Jennifer Ramirez MD at 11:39 EDT ,
[2022-01-04] MEDS: Morphine 4 MG/ML Syringe IV (09:46)
[2022-01-04] MEDS: 0.9% Normal Saline 1,000 ML 1000 ML IV (09:46)
[2022-01-04] MEDS: Ondansetron 4 MG/2 ML Vial IV (09:46)
[2022-01-04 09:53] LABS: Absolute Lymphocyte Count 1.69 X10^3/uL (0.83-4.51); Absolute Neutrophil Count 9.5 X10^3/uL (2.0-7.7); Basophil# 0.05 X10^3/uL; Basophil% 0.4 % (0-1); Eosinophil# 0.39 X10^3/uL; Hematocrit 44.9 % (40-54); Hemoglobin 14.9 g/dL (13.0-16.5); Lymphocyte # 1.69 X10^3/ul (0.83-4.51); Lymphocyte % 13.2 % (19-41); Mean Corp Hgb Conc 33.2 g/dL (32-36); Mean Corpuscular Hgb 27.9 pg (27.0-32.0); Mean Corpuscular Volume 83.9 fL (80-94); Mean Platelet Vol. 10.2 fl (6.2-12.0); Monocyte# 1.13 X10^3/uL; Monocyte% 8.8 % (0-10); NRBC Flagged by Analyzer 0 % (0-5); Neutrophil # 9.52 X10^3/uL (2.7-7.7); Neutrophil % 74.1 % (47-70); Platelet Count 267 K/mm3 (150-450); RBC Distribution Width CV 13.1 % (11.6-14.6); RBC Distribution Width SD 40.2 fl (35.1-43.9); Red Blood Count 5.35 M/mm3 (4.6-6.2); White Blood Count 12.9 K/mm3 (4.4-11.0)
[2022-01-04 09:58] LABS: Bacteria 0 SEEN /hpf (None Seen); Mucous, Urine 0 SEEN /hpf (<or=2+); Red Blood Cells-Urine 0 SEEN /hpf (0-5); Squamous Epithelial Cells - UA 0 SEEN /hpf (0-5); White Blood Cells 0 SEEN /hpf (0-5)
[2022-01-04 10:01] LABS: Color, Urine Yellow (Yellow); Glucose, Dipstick 100 mg/dl (Normal); Ketone-Dipstick Negative (Negative); Leukocyte Esterase-Dipstick Negative /ul (Negative); Nitrite-Dipstick Negative (Negative); Occult Blood-Urine Negative /ul (Negative); Protein-Dipstick 30 mg/dl (Negative); Specific Gravity, Urine 1.025 (1.002-1.030); Urine Bilirubin Dipstick Negative (Negative); Urine Clarity Clear (Clear); Urine Urobilinogen Normal (Normal)
[2022-01-04 10:02] LABS: ALB/GLOB Ratio 1.1 RATIO (0.9-2.4); AST(SGOT) 21 U/L (15-37); Alanine Aminotransfer ALT/SGPT 62 U/L (16-61); Albumin, Serum 3.6 g/dL (3.2-5.0); Alkaline Phosphatase 58 U/L (45-117); Anion Gap 7 (5-15); BUN 16 mg/dL (7-18); BUN/Creat Ratio 16.6 RATIO (10-20); Chloride 106 mmol/L (98-107); Creatinine, Serum 0.96 mg/dL (0.70-1.30); EST Glomerular Filtration Rate 102 mL/min (>60); Est Glom Filt Rate - Afr Amer 124 mL/min (>60); Estimated Creatinine Clearance 111.89 ml/min; Globulin 3.4 g/dL (2.2-4.2); Glucose 192 mg/dL (74-106); Lipase 110 U/L (73-393); Potassium 3.8 mmol/L (3.5-5.1); Sodium Level 139 mmol/L (136-145)
[2022-01-04 12:07] VITALS: BP 141/86; O2SAT 95
[2022-01-04] MEDS: Ciprofloxacin 500 MG Tablet PO (12:48)
[2022-01-04] MEDS: metroNIDAZOLE 500 MG Tablet PO (12:48)
== END 2022-01-04 12:52 | disposition home or self-care (01) ==
PROVIDERS: Emergency Provider Emergency Medicine; PCP Internal Medicine; Visit Provider Emergency Medicine
DX: K52.9 Noninfective gastroenteritis and colitis, unspecified (principal); R11.2 Nausea with vomiting, unspecified; E66.9 Obesity, unspecified
CPT/HCPCS: 74177; 80053; 81001; 83690; 85025; 96374; 96375; 99284; J7030; Q9967; A4216; J2405

== ENCOUNTER → 2022-09-02 | Outpatient (CLI) | payer MEDICAID, SELFPAY | END | disposition home or self-care (01) | LOC: SL 20:10 | PROVIDERS: PCP Internal Medicine; Referring Provider Internal Medicine; Visit Provider Internal Medicine | DX: E66.01 Morbid (severe) obesity due to excess calories (principal); G47.30 Sleep apnea, unspecified; R53.83 Other fatigue; R06.83 Snoring | CPT/HCPCS: 95810 ==